=== PATIENT | male | born 1975 | race Caucasian/White ===

== ENCOUNTER 2017-03-02 12:23 | Emergency (ER) | payer OTHER ==
[~2017-03-02] VITALS: Ht 188 cm; Wt 77.1 kg
[2017-03-02] MEDS ORDERED: IV NORMAL SALINE 1000ML BAG 1,000 ML IV ONE ×3 (12:30→15:30)
--- NOTE | 2017-03-02 12:35 | PHYS DOC ---
Adult General Chief Complaint Chief Complaint: DRUG ABUSE HPI HPI Patient is a 41 year old male who presents from [facility] with agitation and paranoia. According to guards and EMS and the patient he injected what he thought was meth last night around 9 PM and overnight is been very agitated and paranoid. He was seen in their clinic when EMS arrived at 11:30 this morning is been there since 5 AM. EMS. IV and given about 300 mL of fluids and 5 mg IV Valium. They stated that he was diaphoretic and tachycardic upon arrival and now he is much calmer. He denies any neck stiffness, troubles breathing chest pain or abdominal pain. Review of Systems Review of Systems Constitutional: Denies fever or chills [] Eyes: Denies change in visual acuity, redness, or eye pain [] HENT: Denies nasal congestion or sore throat [] Respiratory: Denies cough or shortness of breath [] Cardiovascular: No additional information not addressed in HPI [] GI: Denies abdominal pain, nausea, vomiting, bloody stools or diarrhea [] : Denies dysuria or hematuria [] Musculoskeletal: Denies back pain or joint pain [] Integument: Denies rash or skin lesions [] Neurologic: Denies headache, focal weakness or sensory changes [] Endocrine: Denies polyuria or polydipsia [] All other systems were reviewed and found to be within normal limits, except as documented in this note. Current Medications Current Medications Current Medications Medications (Trade) Dose Ordered Sig/Keila Start Time Stop Time Status Last Admin Dose Admin Sodium Chloride 1,000 ml @ 1,000 mls/hr 1X ONCE 03/02/17 15:30 03/02/17 16:29 03/02/17 15:30 1,000 MLS/HR Allergies Allergies Allergies Coded Allergies Type Severity Reaction Last Updated Verified No Known Drug Allergies 03/02/17 No Physical Exam Physical Exam Constitutional: Well developed, well nourished, no acute distress, non-toxic appearance. [] HENT: Normocephalic, atraumatic, bilateral external ears normal, oropharynx moist, no oral exudates, nose normal. [] Eyes: PERRLA, EOMI, conjunctiva normal, no discharge. [] Neck: Normal range of motion, no tenderness, supple, no stridor. [] Cardiovascular:Heart rate regular rhythm, no murmur [] Lungs & Thorax: Bilateral breath sounds clear to auscultation [] Abdomen: Bowel sounds normal, soft, no tenderness, no masses, no pulsatile masses. [] Skin: Warm, dry, no erythema, no rash. [] Back: No tenderness, no CVA tenderness. [] Extremities: No tenderness, no cyanosis, no clubbing, ROM intact, no edema. [] Neurologic: Alert and oriented X 3, normal motor function, normal sensory function, no focal deficits noted. [] Psychologic: Affect normal, judgement normal, mood normal. [] Current Patient Data Vital Signs Vital Signs Date Time Temp Pulse Resp B/P (MAP) Pulse Ox O2 Delivery O2 Flow Rate FiO2 03/02/17 12:23 97.6 94 24 124/72 (89) 100 Room Air 97.6 Lab Values Laboratory Tests Test 03/02/17 12:25 03/02/17 12:27 03/02/17 13:43 White Blood Count 8.8 x10^3/uL (4.0-11.0) Red Blood Count 4.38 x10^6/uL (4.30-5.70) Hemoglobin 13.4 g/dL (13.0-17.5) Hematocrit 38.2 % (39.0-53.0) L Mean Corpuscular Volume 87 fL (79-100) Mean Corpuscular Hemoglobin 31 pg (25-35) Mean Corpuscular Hemoglobin Concent 35 g/dL (31-37) Red Cell Distribution Width 13.5 % (11.5-14.5) Platelet Count 205 x10^3/uL (140-400) Neutrophils (%) (Auto) 80 % (31-73) H Lymphocytes (%) (Auto) 11 % (24-48) L Monocytes (%) (Auto) 9 % (0-9) Eosinophils (%) (Auto) 0 % (0-3) Basophils (%) (Auto) 0 % (0-3) Neutrophils # (Auto) 7.1 x10^3uL (1.8-7.7) Lymphocytes # (Auto) 1.0 x10^3/uL (1.0-4.8) Monocytes # (Auto) 0.8 x10^3/uL (0.0-1.1) Eosinophils # (Auto) 0.0 x10^3/uL (0.0-0.7) Basophils # (Auto) 0.0 x10^3/uL (0.0-0.2) Prothrombin Time 15.0 SEC (11.7-14.0) H Prothrombin Time INR 1.3 (0.8-1.1) H PTT 28 SEC (24-38) Sodium Level 139 mmol/L (136-145) Potassium Level 3.7 mmol/L (3.5-5.1) Chloride Level 102 mmol/L (98-107) Carbon Dioxide Level 24 mmol/L (21-32) Anion Gap 13 (6-14) Blood Urea Nitrogen 18 mg/dL (8-26) Creatinine 1.3 mg/dL (0.7-1.3) Estimated GFR (Cockcroft-Gault) 61.5 Glucose Level 101 mg/dL (70-99) H Lactic Acid Level 1.8 mmol/L (0.4-2.0) Calcium Level 9.7 mg/dL (8.5-10.1) Magnesium Level 1.8 mg/dL (1.8-2.4) Total Bilirubin 1.7 mg/dL (0.2-1.0) H Direct Bilirubin 0.4 mg/dL (0.0-0.2) H Aspartate Amino Transferase (AST) 83 U/L (15-37) H Alanine Aminotransferase (ALT) 51 U/L (16-63) Alkaline Phosphatase 48 U/L (46-116) Ammonia < 10 mcmol/L (11-34) L Creatine Kinase 1748 U/L (39-308) H Creatine Kinase MB (Mass) 3.8 ng/mL (0.0-3.6) H Creatine Kinase MB Relative Index 0.2 % (0-4) Troponin I Quantitative < 0.017 ng/mL (0.000-0.055) XP-Pgg-W-Type Natriuretic Peptide 42 pg/mL (0-124) Total Protein 8.0 g/dL (6.4-8.2) Albumin 4.4 g/dL (3.4-5.0) Salicylates Level < 2.8 mg/dL (2.8-20.0) L Salicylate Last Dose Date Salicylate Last Dose Time Acetaminophen Level < 2 mcg/ml (10-30) L Acetaminophen Last Dose Date Acetaminophen Last Dose Time Ethyl Alcohol Level < 10 mg/dL (0-10) O2 Saturation 96 % (92-99) Arterial Blood pH 7.52 (7.35-7.45) H Arterial Blood pCO2 at Patient Temp 25 mmHg (35-46) L Arterial Blood pO2 at Patient Temp 74 mmHg (75-108) L Arterial Blood HCO3 20 mmol/L (21-28) L Arterial Blood Base Excess -1 mmol/L (-3-3) FiO2 21 Urine Collection Type Void Urine Color Dk yellow Urine Clarity Clear Urine pH 6.0 Urine Specific Ramona 1.020 Urine Protein Negative mg/dL (NEG-TRACE) Urine Glucose (UA) Negative mg/dL (NEG) Urine Ketones (Stick) >=80 mg/dL (NEG) Urine Blood Negative (NEG) Urine Nitrite Negative (NEG) Urine Bilirubin Small (NEG) Urine Urobilinogen Dipstick 1.0 mg/dL (0.2 mg/dL) Urine Leukocyte Esterase Negative (NEG) Urine RBC 0 /HPF (0-2) Urine WBC 0 /HPF (0-4) Urine Squamous Epithelial Cells Occ /LPF Urine Bacteria 0 /HPF (0-FEW) Urine Hyaline Casts Few /HPF Urine Mucus Mod /LPF Urine Opiates Screen Neg (NEG) Urine Methadone Screen Neg (NEG) Urine Barbiturates Neg (NEG) Urine Phencyclidine Screen Neg (NEG) Urine Amphetamine/Methamphetamine Pos (NEG) Urine Benzodiazepines Screen Pos (NEG) Urine Cocaine Screen Neg (NEG) Urine Cannabinoids Screen Neg (NEG) Urine Ethyl Alcohol Neg (NEG) Laboratory Tests 03/02/17 12:25 Laboratory Tests 03/02/17 12:25 EKG EKG EKG shows sinus rhythm with rate of [address] elevations or concerning T-wave inversions, normal axis, QTC 474 ms, as interpreted by me. Radiology/Procedures Radiology/Procedures [facility] [address] [place] [address] IMAGING REPORT Signed PATIENT: ROMEO SCALES ACCOUNT: [id number] : 1975 LOCATION: ER AGE: 41 SEX: M EXAM STATUS: PRE ER ORD. PHYSICIAN: LANCE CELESTIN MD REASON: AMS PROCEDURE: PORTABLE CHEST 1V Portable chest, 03/02/2017: History: Altered mental status The heart size and pulmonary vascularity are normal. No pulmonary infiltrates are seen. There is no evidence of pleural fluid. IMPRESSION: No acute cardiopulmonary abdomen abnormality is detected. DICTATED and SIGNED BY: DANN SALES MD DATE: 03/02/17 1251 CC: LANCE CELESTIN MD ~ Impressions: Meth amphetamine abuse Dehydration Elevated CK Course & Med Decision Making Course & Med Decision Making Pertinent Labs and Imaging studies reviewed. (See chart for details) Labs show an elevated CK and total bilirubin. He received 3 L of normal saline and 5 of IV Versed. His heart rate has improved normal range. He states he feels better. I spoke with the senior care clinic and informed him of his elevated total bilirubin this these repeated tomorrow. He is being discharged in stable condition at this time with return precautions. Dragon Disclaimer Dragon Disclaimer This electronic medical record was generated, in whole or in part, using a voice recognition dictation system. Departure Departure Impression: Primary Impression: Methamphetamine intoxication Disposition: 01 HOME, SELF-CARE Condition: STABLE Patient Instructions: Amphetamine Abuse Additional Instructions: You were seen after you ingested meth in senior care. Your given Versed which is a medicine help calm me down. You received 3 L of IV fluids and your labs are checked. Your vitals are now stable. You have an elevated bilirubin of which the clinic tomorrow we'll repeat labs and check ear bilirubin level. Your being discharged back to senior care now. He developed severe abdominal pain, severe muscle pain, fevers, confusion or other concerns please let your infirmary know. LANCE CELESTIN MD Mar 02, 2017 12:35
[2017-03-02 12:55] LABS: CALCIUM 9.7 mg/dL (8.5-10.1); CREATININE 1.3 mg/dL (0.7-1.3); GFR 61.5; POTASSIUM 3.7 mmol/L (3.5-5.1)
--- NOTE | 2017-03-02 12:56 | RAD ---
Portable chest, 03/02/2017: History: Altered mental status The heart size and pulmonary vascularity are normal. No pulmonary infiltrates are seen. There is no evidence of pleural fluid. IMPRESSION: No acute cardiopulmonary abdomen abnormality is detected.
[2017-03-02 13:01] LABS: ALBUMIN 4.4 g/dL (3.4-5.0); BASO % 0 % (0-3); DIRECT BILIRUBIN 0.4 mg/dL (0.0-0.2); EOS % 0 % (0-3); HEMATOCRIT 38.2 % (39.0-53.0); HEMOGLOBIN 13.4 g/dL (13.0-17.5); LYMPH % 11 % (24-48); MAGNESIUM 1.8 mg/dL (1.8-2.4); MEAN CORPUSCULAR HEMOGLOBIN 31 pg (25-35); MEAN CORPUSCULAR HGB CONC 35 g/dL (31-37); MEAN CORPUSCULAR VOLUME 87 fL (79-100); MONO % 9 % (0-9); NEUT % 80 % (31-73); PLATELET COUNT 205 x10^3/uL (140-400); RED BLOOD COUNT 4.38 x10^6/uL (4.30-5.70); RED CELL DISTRIBUTION WIDTH 13.5 % (11.5-14.5); TOTAL BILIRUBIN 1.7 mg/dL (0.2-1.0); WHITE BLOOD COUNT 8.8 x10^3/uL (4.0-11.0)
[2017-03-02 13:10] LABS: CKMB MASS 3.8 ng/mL (0.0-3.6)
[2017-03-02 13:15] LABS: INR 1.3 (0.8-1.1)
--- NOTE | 2017-03-02 13:18 | EKG ---
[facility] [address] [place] [address] Test Date: 2017-03-02 Test Time: 12:29:55 Pat Name: ROMEO SCALES Department: Room: Gender: M [employer]: : 1975 Requested By: LANCE CELESTIN Order Number: [id number] Reading MD: Saroj Echols MD Measurements Intervals [place] Rate: 97 P: 49 MA: 102 QRS: 14 QRSD: 92 T: 36 QT: 370 QTc: 474 Interpretive Statements SINUS RHYTHM PROLONGED QT Electronically Signed On 03-06-2017 15:39:25 HAT MARKER by Saroj Echols MD
[2017-03-02 13:26] LABS: ETHANOL < 10 mg/dL (0-10)
[2017-03-02 14:09] LABS: BILIRUBIN,URINE SMALL (NEG); GLUCOSE,URINE NEGATIVE (NEG); NITRITE,URINE NEGATIVE (NEG); PROTEIN,URINE NEGATIVE (NEG-TRACE)
[2017-03-02 14:11] LABS: BACTERIA,URINE 0 /HPF (0-FEW); RBC,URINE 0 /HPF (0-2); SQUAMOUS EPITHELIAL CELL,UR OCC /LPF; WBC,URINE 0 /HPF (0-4)
[2017-03-02 14:20] LABS: BARBITURATES NEG (NEG); BENZODIAZEPINES POS (NEG); CANNABINOIDS NEG (NEG); COCAINE NEG (NEG); METHADONE NEG (NEG); OPIATES NEG (NEG); PHENCYCLIDINE NEG (NEG)
[2017-03-02 14:35] LABS: FIO2 ABG 21; HCO3 ABG 20 mmol/L (21-28); PCO2 ABG 25 mmHg (35-46); PH ABG 7.52 (7.35-7.45); PO2 ABG 74 mmHg (75-108); SAT O2 ABG 96 % (92-99)
[2017-03-02 15:24] VITALS: BP 139/65
== END 2017-03-02 16:20 | disposition home or self-care (01) ==
LOC: EEVIPCON 12:23 → ER 12:23
DX: F15.129 Other stimulant abuse with intoxication, unspecified (principal)
CPT/HCPCS: 36415; 36600; 71010; 80048; 80076; 80307; 80329; 81001; 82140; 82553; 82805; 83605; 83735; 83880; 84484; 85025; 85610; 85730; 93005; 96360; 96361; 99285; G0480; J7030; G0479